=== PATIENT | male | born 1975 | race Hispanic/Latino ===

== ENCOUNTER 2018-06-04 21:57 | Emergency (ER) | payer OTHER ==
[2018-06-05] MEDS ORDERED: FAMOTIDINE 20MG TAB 20 MG TAB ONE (00:19)
[2018-06-05] MEDS ORDERED: DIPHENHYDRAMINE HCL 25 MG CAPSULE ONE (00:19)
[2018-06-05] MEDS ORDERED: METHYLPREDNISOLONE SOD SUCC 125MG/2ML VIAL ONE (00:19)
== END 2018-06-05 01:45 | disposition home or self-care (01) ==
LOC: EDH 21:57
DX: L50.0 Allergic urticaria (principal); I10 Essential (primary) hypertension; E11.9 Type 2 diabetes mellitus without complications
CPT/HCPCS: 96372; 99283; J2930; Q0163